=== PATIENT | male | born 1950 | race Caucasian/White ===

== ENCOUNTER 2019-05-15 19:10 | Inpatient (IN) ==
[2019-05-15] MEDS ORDERED: NS 1,000 ML IV ONE ×2 (19:26→23:10)
[2019-05-15] MEDS ORDERED: ZOFRAN IV ONE ×2 (19:29→22:24)
[2019-05-15] MEDS ORDERED: DILAUDID IV ONE (19:29)
[2019-05-15 19:52] LABS: BASO# 0.02 X1000 (0.0-0.2); BASO% 0.2 % (0.0-0.8); EOS# 0.67 X1000 (0.0-0.7); EOS% 5.8 % (0.0-10.0); HEMATOCRIT 42.7 % (42.0-52.0); HEMOGLOBIN 13.8 g/dL (14.0-18.0); IMM GRAN# 0.05 X1000 (0.0-0.04); IMM GRAN% 0.4 % (0.0-0.5); LYMPH# 2.36 X1000 (1.2-3.4); LYMPH% 20.3 % (20.5-51.1); MCH 25.8 PG (27-31); MCHC 32.3 g/dL (33-37); MONO% 7.8 % (1.7-9.3); NEUT% 65.5 % (42.2-75.2); PLT 173 X1000 (130-400); RBC 5.34 XMIL (4.7-6.1); RDW 13.9 % (11.5-14.5)
[2019-05-15 20:07] LABS: BILIRUBIN URINE NEGATIVE (NEGATIVE); BLOOD URINE NEGATIVE (NEGATIVE); CLARITY CLEAR (CLEAR); COLOR YELLOW; GLUCOSE URINE NEGATIVE (NEGATIVE); KETONE URINE NEGATIVE (NEGATIVE); LEUKOCYTES URINE NEGATIVE (NEGATIVE); NITRITE URINE NEGATIVE (NEGATIVE); PH URINE 6.5; PROTEIN URINE NEGATIVE (NEGATIVE); SP GRAVITY URINE 1.005; UROBILINOGEN URINE NORMAL
[2019-05-15 20:09] LABS: AGAP 9; ALBUMIN 4.2 g/dL (3.5-5.0); ALKALINE PHOSPHATASE 69 U/L (32-122); AMYLASE 55 U/L (20-200); BUN 17 mg/dL (8-22); CHLORIDE 99 mmol/L (98-107); COSMO 279; CREATININE 1.1 mg/dL (0.7-1.2); ESTIMATED GFR > 60; GLUCOSE 135 mg/dL (70-104); GOT 21 U/L (10-34); GPT 16 U/L (10-44); LIPASE 25 U/L (13-60); POTASSIUM 4.1 mmol/L (3.5-5.1); SODIUM 138 mmol/L (136-145); TCO2 30 mmol/L (25-35); TOTAL PROTEIN 7.5 g/dL (6.3-8.3)
[2019-05-15 20:27] LABS: URINE SOURCE CLEAN CATCH
[2019-05-15 20:28] LABS: URINE BACTERIA NEGATIVE /HFP; URINE CAST NONE SEEN /LPF; URINE CRYSTAL NONE SEEN /HPF; URINE EPITHELIAL CELLS <10 /HPF (<10); URINE RBC <10 /HPF (<10); URINE WBC <10 /HPF (<10); URINE YEAST NONE SEEN /HPF
--- NOTE | 2019-05-15 20:33 | Diag Imaging Result Doc PS360 ---
EXAM: CT ABDOMEN/PELVIS W/O CONTRAST 05/15/2019 HISTORY: abd pain TECHNIQUE: This exam was performed using automated exposure control, adjustment of mA or kV according to patient size, and/or use of iterative reconstruction technique. COMMENT: The current study is compared with the previous examination of 05/01/2011. There is some pleural thickening in the posterior costophrenic sulcus of the left lower lobe which is slightly worse than on the previous study. Otherwise there is no evidence of acute disease in the visualized portion of the chest. There is no evidence of nephrolithiasis or hydronephrosis. There is diverticulosis of the colon. There is no evidence of acute diverticulitis. There is no evidence of free fluid. There is a fair amount of stool in the cecum which is somewhat mobile. There is no evidence of appendicitis. The small bowel is not distended. There are atherosclerotic calcifications in the aorta. The aorta is not distended. There is no evidence of cholelithiasis. There is a fat-containing inguinal hernia on the right. The entire small bowel is somewhat more distended and contains more fluid than on the previous examination, and the possibility of mild enteritis cannot be excluded.. IMPRESSION: Questionable enterocolitis. Mild constipation and diverticulosis coli. Electronically signed by Gaurav Kruse 05/15/2019 8:30 PM
[2019-05-15] MEDS ORDERED: CIPRO 400 MG/D5W 400 MG/200 ML IVPB IV ONE (21:02)
[2019-05-15] MEDS ORDERED: FLAGYL 500 MG/NS 500 MG/100 ML IVPB IV ONE (21:02)
[2019-05-15] MEDS ORDERED: TYLENOL PO ONE (22:24)
--- NOTE | 2019-05-15 22:49 | PROVIDER DOCUMENTATION ---
This chart was entered by Brandi Arias Scribe, acting as scribe for Cammy Amaya MD. HPI-Abdominal Pain/GI Problem - General Chief Complaint: Abdominal Pain Stated Complaint: ABD PAIN Time Seen by Provider: 05/15/19 19:20 Source: patient Allergies/Adverse Reactions: Patient Allergies Allergy/AdvReac Type Severity Reaction Status Date / Time codeine AdvReac Intermediate VOMITING Verified 08/02/13 03:07 Home Medications: Home Medication List Medication Instructions Recorded Confirmed Last Taken Type Cinnamon Bark/Chromium Picolin 1 each PO QAM 08/02/13 05/16/19 08/01/13 09:00 History [Cinnamon Plus Chromium Capsule] Gluc/Ramon-MSM#1/C/Rios/Nico/Bor 1 each PO QAM 08/02/13 05/15/19 08/01/13 09:00 History [Osteo Bi-Flex Caplet] Levothyroxine [Synthroid] 150 microgm PO QAM 08/02/13 05/16/19 05/14/19 07:00 History Metoprolol Succinate E.r. [Toprol 50 mg PO DAILY 08/02/13 05/16/19 05/14/19 21:00 History Xl] Montelukast [Singulair] 10 mg PO QPM PRN 08/02/13 05/16/19 05/14/19 21:00 History Multivitamin [Multivitamins] 1 each PO QAM 08/02/13 05/15/19 08/01/13 09:00 History Oxymetazoline HCl [Visine Long 15 ml OP PRN PRN 08/02/13 05/15/19 08/01/13 09:00 History Lasting] Tamsulosin [Flomax] 0.4 mg PO DAILY 08/02/13 05/16/19 05/14/19 09:00 History Testosterone [Testopel] 75 mg [place] DIRECTED 08/02/13 05/16/19 Unknown History Valacyclovir HCl [Valtrex] 1,000 mg PO PRN PRN 08/02/13 05/15/19 Unknown History Celecoxib 200 mg PO DAILY 05/15/19 05/16/19 05/15/19 09:00 History Cyclosporine [Restasis] 0.4 ml .SEE ORDER BID 05/15/19 05/16/19 Unknown History Glimepiride 2 mg PO BID 05/15/19 05/16/19 05/14/19 13:00 History Hydrochlorothiazide 1 tab PO DAILY 05/15/19 05/16/19 05/14/19 09:00 History Loratadine [Claritin] 10 mg PO PRN PRN 05/15/19 05/16/19 Unknown History Sitagliptin [Januvia] 50 mg PO DAILY 05/15/19 05/16/19 05/14/19 09:00 History Metformin HCl 1 cap PO BID 05/16/19 05/16/19 05/15/19 08:00 History Pantoprazole [Protonix] 40 mg PO HS 05/16/19 05/16/19 05/15/19 21:00 History Levofloxacin [Levaquin] 500 mg PO DAILY #7 tab 05/17/19 Unknown Rx Metronidazole [Flagyl] 500 mg PO TID #21 tab 05/17/19 Unknown Rx - History of Present Illness-ABD Nature of Presenting Problems: Pt si 69/M presenting to ED w/ generalized ABD pain that started around 2pm today, worsening after eating lunch at 2:30, sts having mild nausea, but denies vomiting. Pt sts that he had 2 normal BM this morning, but cannot go again now and is having trouble passing gas as well. pt has hx of colon resection, hernia repair and diverticulitis. Pt sts that he has no hx of bowel obstruction. Pt denies cardiac hx, but sts that he has been feeling a recurrent "squeezing and then a pop" in is chest lately that has become more frequent. Abdominal Pain Onset Location: reports: generalized abdomen Pain Radiation: reports: no radiation Quality of Pain: reports: aching Severity in ED: reports: moderate Onset/Duration: reports: 4-6 hours ago Timing: reports: still present, getting worse Activities at Onset: reports: none Modifying Factors: improves with: nothing Associated Symptoms: reports: nausea. denies: arm pain, chest pain, fever/chills, shortness of breath, vomiting Last BM: this morning (x2) Dark Stools Present?: reports: none noticed Rectal Bleeding: reports: none Rectal Pain: reports: none Emesis Description: reports: none Bruising or Bleeding Gums?: No Similar Symptoms Previously?: No Recently seen or treated by another doctor?: No Review of Systems - Adult - REVIEW OF SYSTEMS - ADULT Constitutional: reports: no symptoms reported. denies: chills, fever Eyes: reports: no symptoms reported Ears, Nose, Mouth & Throat: reports: no symptoms reported Cardiovascular: reports: no symptoms reported. denies: chest pain Respiratory: reports: no symptoms reported Gastrointestinal: reports: abdominal pain, nausea. denies: constipation, diarrhea, rectal bleeding, vomiting Genitourinary: reports: no symptoms reported Musculoskeletal: reports: no symptoms reported. denies: back pain Integumentary: reports: no symptoms reported Neurological: reports: no symptoms reported. denies: dizziness/vertigo, headache/migraines Psychiatric: reports: no symptoms reported Endocrine: reports: no symptoms reported Hematologic/Lymphatic: reports: no symptoms reported Allergic/Immunologic: reports: no symptoms reported All Other Systems: Reviewed and Negative Past History - Adult - PAST MEDICAL HISTORY-ADULT Review of Records: reports: Old Records Reviewed, Nursing Assessment Review, Medications Reviewed, Social history reviewed & non-contributory. - SOCIAL HISTORY Smoking: denies, non-smoker Substance Use: none/never Alcohol Use Frequency: rarely Living Situation: family Physical Exam-General - PHYSICAL EXAM-ADULT Initial Vital Signs Reviewed: Yes - CONSTITUTIONAL General Appearance: appears well, alert, mild distress - EYES Eyes: PERRL/EOMI, pink conjunctivae - HEAD, EARS, NOSE, MOUTH & THROAT HENMT: normocephalic/atraumatic, moist mucous membranes, TMs normal. negative: normal ENT inspection (mildly dry) - NECK Neck: non-tender, full range of motion, supple - RESPIRATORY Respiratory: lungs clear - CARDIOVASCULAR Cardiovascular: regular rate, rhythm - GASTROINTESTINAL (ABDOMEN) Abdominal Exam: normal bowel sounds, non tender, soft - LYMPHATIC Lymphatic: no adenopathy - MUSCULOSKELETAL Back Exam: normal inspection Extremity: normal range of motion, non-tender, normal gait, normal inspection - SKIN Integumentary: normal color, warm/dry - NEUROLOGIC Neurologic: grossly normal - PSYCHIATRIC Psych/Mental Status: normal mood/affect, normal thought content, normal thought process, oriented x 3 Progress - PLAN OF CARE/RESULTS Progress/Plan/Lab Results: Vital Signs - 8 hr 05/15/19 19:15 Temperature 98.1 F Pulse Rate 68 Respiratory Rate 20 Blood Pressure 132/73 O2 Sat by Pulse Oximetry 99 Orders Category Date Time Status CT ABD/PELVIS W/IV CONT ONLY [CT] Stat Exams 05/15/19 19:26 Ordered AMYLASE [CHEM] Stat Lab 05/15/19 19:26 Uncollected CBC WITH ELECTRONIC DIFF [HEME] Stat Lab 05/15/19 19:26 Uncollected COMPREHENSIVE METABOLIC PANEL [CHEM] Stat Lab 05/15/19 19:26 Uncollected LACTATE, PLASMA [CHEM] Stat Lab 05/15/19 19:26 Uncollected LIPASE [CHEM] Stat Lab 05/15/19 19:26 Uncollected UA NIMS W/REFLEX CULT PL [URINALYSIS] Stat Lab 05/15/19 19:26 Uncollected 0.9% Sodium Chloride Inj [Ns] 1,000 ml Med 05/15/19 19:26 Active IV 999 mls/hr Result Diagrams: 05/17/19 05:15 05/17/19 05:15 - CT/MRI 1 CT Study: Abdomen Impression: Abnormal (EXAM: CT ABDOMEN/PELVIS W/O CONTRAST 05/15/2019 HISTORY: abd pain TECHNIQUE: This exam was performed using automated exposure control, adjustment of mA or kV according to patient size, and/or use of iterative reconstruction technique. COMMENT: The current study is compared with the previous examination of 05/01/2011. There is some pleural thickening in the posterior costophrenic sulcus of the left lower lobe which is slightly worse than on the previous study. Otherwise there is no evidence of acute disease in the visualized portion of the chest. There is no evidence of nephrolithiasis or hydronephrosis. There is diverticulosis of the colon. There is no evidence of acute diverticulitis. There is no evidence of free fluid. There is a fair amount of stool in the cecum which is somewhat mobile. There is no evidence of appendicitis. The small bowel is not distended. There are atherosclerotic calcifications in the aorta. The aorta is not distended. There is no evidence of cholelithiasis. There is a fat-containing inguinal hernia on the right. The entire small bowel is somewhat more distended and contains more fluid than on the previous examination, and the possibility of mild enteritis cannot be excluded.. IMPRESSION: Questionable enterocolitis. Mild constipation and diverticulosis coli. Electronically signed by Gaurav Kruse 05/15/2019 8:30 PM 05/15/192029 Interpreting Physician: Gaurav Kruse MD Dictated Da te/Time: 05/15/192023 cc: Cammy Amaya MD; Alonso Blount MD) - CONSULTS/PCP/HOSPITALIST Notification #1 *Consult/PCP/Hospitalist*: d/w Dr. Teran Time Discussed: 22:49 Consult Disposition: Admit Departure - Departure Date of Disposition Decision: 05/16/19 Time of Disposition Decision: 00:10 DIAGNOSIS: Enterocolitis Disposition: ADMITTED INPATIENT 09 Certified Medical Emergency: Emergent Condition: Stable - Critical Care Note This patient required my direct & personal management of CC.: No Attestation - Physician/ DIANE Attestation Patient care was provided by Advanced Practice Provider:: No The physician spent face to face time with patient:: Yes Advanced Practice Provider documentation review:: Supervising physician onsite and consulted in the evaluation and care of this patient. The physician did have a face to face encounter with the patient. This chart was documented by the indicated scribe, (Brandi Arias, Christopheribe) and accurately reflects the services I performed and decisions made by me, Cammy Brown MD, as attested by the provider's signature.
[2019-05-15] MEDS ORDERED: ZOFRAN IV PRN (23:10)
[2019-05-15] MEDS ORDERED: DILAUDID IV PRN (23:10)
[2019-05-16] MEDS ORDERED: ZOFRAN IV PRN (00:17)
[2019-05-16] MEDS ORDERED: DILAUDID IV PRN (00:17)
[2019-05-16] MEDS ORDERED: NS 1,000 ML IV SCH (00:30)
[2019-05-16] MEDS ORDERED: TYLENOL PO PRN (07:08)
[2019-05-16] MEDS ORDERED: CLARITIN PO PRN (07:10)
[2019-05-16] MEDS ORDERED: VISINE OPH DROPS OPH PRN (07:10)
[2019-05-16] MEDS ORDERED: SINGULAIR PO PRN (07:10)
[2019-05-16] MEDS ORDERED: VALTREX PO PRN (07:10)
[2019-05-16] MEDS ORDERED: SYNTHROID PO SCH ×2 (08:00)
[2019-05-16] MEDS ORDERED: RESTASIS 0.05% OPH DROPS SCH (09:00)
[2019-05-16] MEDS ORDERED: CIPRO 400 MG/D5W 400 MG/200 ML IVPB IV SCH (10:00)
[2019-05-16] MEDS: FLAGYL 500 MG/NS 500 MG/100 ML IVPB IV SCH ×3 (10:09→21:40)
[2019-05-16] MEDS: RESTASIS 0.05% OPH DROPS OPH SCH ×2 (10:14→21:28)
[2019-05-16] MEDS: GLUCOSAMINE 500 MG/CHONDROITIN 400 MG PO SCH (10:15)
[2019-05-16] MEDS: AMARYL PO SCH ×3 (10:16→21:28)
[2019-05-16] MEDS: TOPROL XL PO SCH (10:17)
[2019-05-16] MEDS: FLOMAX PO SCH (10:17)
[2019-05-16] MEDS: JANUVIA PO SCH ×2 (10:18→12:19)
[2019-05-16] MEDS: CELEBREX PO SCH ×2 (10:18→10:19)
[2019-05-16] MEDS: THERA M PLUS PO SCH (10:19)
[2019-05-16] MEDS: MIRALAX PO SCH ×2 (10:20→21:28)
[2019-05-16] MEDS: HYDROCHLOROTHIAZIDE PO SCH ×2 (10:20→10:22)
--- NOTE | 2019-05-16 10:39 | HISTORY AND PHYSICAL ---
PRIMARY CARE PHYSICIAN: Alonso Blount MD. CHIEF COMPLAINT: Abdominal pain and distention. HISTORY OF PRESENT ILLNESS: Mr. Martínez is a 69-year-old, male. He complains of his stomach beginning to swell yesterday afternoon. He stated he started having abdominal pain. He states it steadily got worse throughout the day. He tried to take some Gas-X to resolve the pain and this did not help. He was unable to have a bowel movement. He stated there was some nausea but no vomiting. The patient states he has a history of diverticulitis in the 1970s and this was kind of like the pain he felt back then. The patient presented to the ER. White blood cell count showed 11.60. Amylase and lipase were normal at [address] scan showed questionable enterocolitis and mild constipation, and diverticulosis. The patient was given Flagyl and Cipro in the ER. The patient states that, however, after the Cipro was given, he became very nauseated. The patient was then given IV Zofran at that time. The patient denies any headaches or fevers. He denies any chest pain. Abdomen is tender to palpation. He is denying any abdominal pain at this time. States his pain is a lot more improved since he received some pain medicine in the ER. Abdomen is not distended. It is soft and bowel sounds are present. The patient denies any difficulty urinating. States that he has not been able to use the bathroom since the day before yesterday. The patient denies any blood in his stool or blood in his urine. PAST MEDICAL HISTORY: Diverticulitis in the 70s, hyperlipidemia, Kwadwo's thyroiditis, MGUS syndrome, irregular heart rhythm, diabetes, neuropathy, restless legs syndrome, GERD, blepharitis, osteoarthritis. PAST SURGICAL HISTORY: Colon resection in 2001, a tumor removal to the right breast as a teenager, tonsillectomy, and varicocelectomy. FAMILY HISTORY: Mother is and she from diabetes. Father is still living. He has had an PA and a CABG. SOCIAL HISTORY: The patient is . He lives in [place] He still works as a private pilot. He denies any smoking or illicit drug use. He states that he occasionally drinks alcohol in a social setting. ALLERGIES: Codeine. MEDICATIONS: 1. Celecoxib 200 mg p.o. daily. 2. Cinnamon bark, cinnamon plus chromium capsule, 1 tablet p.o. every morning. 3. Restasis 0.4 mL b.i.d. 4. Glimepiride 2 mg p.o. b.i.d. 5. Osteo Bi-Flex capsules 1 tablet p.o. every morning. 6. Hydrochlorothiazide 1 tablet p.o. daily. 7. Synthroid 150 mcg p.o. daily. 8. Claritin 10 mg p.o. p.r.n. 9. Toprol-XL 50 mg p.o. daily. 10. Singulair 10 mg p.o. q.p.m. 11. Multivitamin 1 tablet p.o. every morning. 12. Visine long-lasting 50 mL to the eyes p.r.n. 13. Protonix 40 mg p.o. at bedtime. 14. Januvia 50 mg p.o. daily. 15. Flomax 0.4 mg p.o. daily. 16. Testopel 75 mg as directed. 17. Valtrex 1000 mg p.o. p.r.n. LABS AND DIAGNOSTICS: White blood cell count 11.60, red blood cell count 5.34, hemoglobin is 13.8, hematocrit is 42.7, platelet count is 173,000. Sodium is 138, potassium is 4.1, chloride is 99, carbon dioxide 30, anion gap is 9, BUN 17, creatinine 1.1, estimated GFR is greater than 60, glucose is 135, calcium is 9. Bilirubin is 0.5, AST is 21, ALT is 16, alkaline phosphatase is 69, amylase is 55, lipase is 25. Plasma lactate is 1. Urinalysis is negative. CT of the abdomen and pelvis shows questionable enterocolitis, mild constipation, and diverticulosis coli. REVIEW OF SYSTEMS: A 10 point review of systems has been obtained and all are negative except what is stated above in the HPI. PHYSICAL EXAMINATION: VITAL SIGNS: Temperature 97.6 degrees, heart rate 58, respiratory rate 18, blood pressure is 118/64, O2 saturation is 100% on room air. Weight is 227 pounds. Height is 6 feet 2 inches. GENERAL: This is a 69-year-old, male. He is lying in the bed. He is in no acute distress. He is well nourished and well developed. HEENT: Atraumatic, normocephalic. Pupils equal, round, reactive to light. Extraocular movements intact. Sclerae are icteric. Mucous membranes are moist. NECK: Supple. No lymphadenopathy. Trachea is midline. No JVD. No thyromegaly. No bruits. CARDIOVASCULAR: Regular rate and rhythm. No gallops or rubs appreciated. No murmurs. RESPIRATORY: Lung sounds are clear with equal chest excursion. Respirations are nonlabored with no accessory muscle usage. GI: Abdomen is tender, soft, and nondistended. Bowel sounds are present x4. NEUROLOGIC: Cranial nerves 2-12 are intact. The patient is awake, alert, oriented, and able to follow all commands. MUSCULOSKELETAL: Full distal strength noted. No abnormalities of gait. No deformities. EXTREMITIES: No clubbing, no cyanosis, no edema. DP and PT pulses are present and palpable. SKIN: Warm, dry, intact. No rashes. No bruises. No diaphoresis. ASSESSMENT AND PLAN: 1. Enterocolitis. We admitted this patient to the medical floor. We have started him on intravenous antibiotics of Flagyl and Levaquin. We are going to give him Zofran as needed for his nausea. We started him on a gastrointestinal soft diet. He has been able to hold down liquids all night. We are going to give him Tylenol for fever as needed. We have restarted all of his home medications. We are going to repeat labs in the morning. 2. Constipation. I am going to give him some MiraLAX daily. 3. Diabetes. I have restarted his home diabetic medications. We are also going to be checking his fingerstick before meals and at bedtime. We can give him subcutaneous insulin per sliding scale. 4. Gastroesophageal reflux disease. The patient takes Protonix at home. I have restarted his home medication. 5. Osteoarthritis. I have started all of his home medications for his arthritis. 6. Gastrointestinal prophylaxis. He is on home Protonix. I have restarted this. 7. Deep venous thrombosis prophylaxis. I have placed him on sequential compression devices. We have admitted this patient to the medical floor. We are going to give him intravenous antibiotics of Levaquin and Flagyl. We have advanced his diet to a gastrointestinal soft diet. We will see how he tolerates this. I have also given him some MiraLAX for his constipation. We have restarted all of his home medications. The patient's abdominal pain seems to have subsided since admission. We are going to follow this patient closely and all further recommendations are pending hospital course and lab data. Dictated by DWAYNE Abreu for Terrence Teran MD cc: MD Alonso Manjarrez MD MTDD
[2019-05-16] MEDS: HUMULIN R (PARKWAY) SUBQ SCH ×3 (11:11→21:29)
[2019-05-16] MEDS: LEVAQUIN 750 MG in NS 150 ML IV SCH (11:13)
--- NOTE | 2019-05-16 13:42 | HISTORY AND PHYSICAL ---
ADDENDUM: Patient was seen and examined by myself. Full note dictated and discussed with nurse practitioner. Patient notes that overall he is feeling better. States his nausea has improved. His abdominal pain has improved. PLAN: I will plan to admit the patient to the hospital. As his symptoms have improved some overnight, we are going to advance his diet. If he tolerates this, hopefully he can discharge home later. cc: Terrence Teran MD
[2019-05-16] MEDS: NS 1,000 ML IV SCH (17:19)
[2019-05-16] MEDS ORDERED: PROTONIX PO SCH (21:00)
[2019-05-17] MEDS: FLAGYL 500 MG/NS 500 MG/100 ML IVPB IV SCH ×2 (04:35→09:57)
[2019-05-17] MEDS: NS 1,000 ML IV SCH ×2 (05:00→10:00)
[2019-05-17 05:52] LABS: BASO# 0.03 X1000 (0.0-0.2); BASO% 0.5 % (0.0-0.8); EOS# 0.62 X1000 (0.0-0.7); EOS% 10.4 % (0.0-10.0); HEMATOCRIT 39.7 % (42.0-52.0); HEMOGLOBIN 12.5 g/dL (14.0-18.0); IMM GRAN# 0.02 X1000 (0.0-0.04); IMM GRAN% 0.3 % (0.0-0.5); LYMPH# 1.45 X1000 (1.2-3.4); LYMPH% 24.3 % (20.5-51.1); MCH 25.5 PG (27-31); MCHC 31.5 g/dL (33-37); MONO# 0.71 X1000 (0.11-0.59); MONO% 11.9 % (1.7-9.3); NEUT# 3.13 X1000 (1.4-6.5); NEUT% 52.6 % (42.2-75.2); PLT 151 X1000 (130-400); WBC 5.96 X1000 (4.8-10.8)
[2019-05-17 06:06] LABS: AGAP 9; BUN 16 mg/dL (8-22); CHLORIDE 103 mmol/L (98-107); COSMO 280; CREATININE 1.1 mg/dL (0.7-1.2); ESTIMATED GFR > 60; GLUCOSE 124 mg/dL (70-104); MAGNESIUM 1.6 mg/dL (1.5-2.7); SODIUM 139 mmol/L (136-145); TCO2 27 mmol/L (25-35)
[2019-05-17 06:16] LABS: HEMOGLOBIN A1C 7.3 % (4.8-6.0)
[2019-05-17] MEDS ORDERED: CLARITIN PO PRN (07:00)
[2019-05-17] MEDS ORDERED: SYNTHROID PO SCH (07:00)
[2019-05-17] MEDS: HUMULIN R (PARKWAY) SUBQ SCH ×2 (07:34→12:18)
[2019-05-17] MEDS: SYNTHROID PO SCH ×2 (07:36→10:02)
[2019-05-17] MEDS: LEVAQUIN 750 MG in NS 150 ML IV SCH (09:51)
[2019-05-17] MEDS: RESTASIS 0.05% OPH DROPS OPH SCH (09:53)
[2019-05-17] MEDS: GLUCOSAMINE 500 MG/CHONDROITIN 400 MG PO SCH (09:54)
[2019-05-17] MEDS: AMARYL PO SCH (09:54)
[2019-05-17] MEDS: TOPROL XL PO SCH (09:54)
[2019-05-17] MEDS: CELEBREX PO SCH (09:54)
[2019-05-17] MEDS: JANUVIA PO SCH (09:54)
[2019-05-17] MEDS: THERA M PLUS PO SCH (09:54)
[2019-05-17] MEDS: HYDROCHLOROTHIAZIDE PO SCH (09:55)
[2019-05-17] MEDS: FLOMAX PO SCH (09:55)
[2019-05-17] MEDS: MIRALAX PO SCH (09:55)
[2019-05-17] MEDS ORDERED: SENOKOT PO ONE (12:06)
[2019-05-17 14:19] VITALS: BP 110/52
--- NOTE | 2019-05-17 17:19 | DISCHARGE SUMMARY ---
ADMISSION DATE: 05/15/2019 DISCHARGE DATE: 05/17/2019 PRIMARY CARE PHYSICIAN: Dr. Alonso Blount. ADMISSION DIAGNOSES: 1. Enterocolitis. 2. Constipation. 3. Diabetes. 4. Gastroesophageal reflux disease. 5. Osteoarthritis. DISCHARGE DIAGNOSIS: 1. Enterocolitis. 2. Constipation. 3. Diabetes. 4. Gastroesophageal reflux disease. 5. Osteoarthritis. SUMMARY OF FINDINGS: This is a 69-year-old male who presented to the ER with complaints of his stomach beginning to swell on the day prior what began having abdominal pain and progressively worsened throughout the day, tried to take some Gas-X to resolve the pain and it did not help. Was unable to have a bowel movement, had nausea but no vomiting. A CT scan showed a questionable enterocolitis and mild constipation and diverticulosis. He was admitted, placed on IV Flagyl and Levaquin, given Zofran p.r.n. for nausea, started him on a GI soft diet. He tolerated this well. His white blood cell count returned to normal this morning to 5.96. States his abdominal pain was much improved and so it was felt that he could safely be discharged home. DISCHARGE MEDICATIONS: Celebrex 200 mg p.o. daily, cinnamon bark plus chromium capsule 1 p.o. q.a.m., Restasis 1 drop to each eye b.i.d., glimepiride 2 mg p.o. b.i.d., Osteo Bi-Flex 1 tablet q.a.m., hydrochlorothiazide 25 mg p.o. daily, Levaquin 500 mg p.o. daily #7 with no refills, Synthroid 150 mcg p.o. q.a.m., Claritin 10 mg p.o. p.r.n., metformin 500 mg p.o. b.i.d., metoprolol 50 mg p.o. daily, Flagyl 500 mg p.o. t.i.d. #21 with no refills, Singulair 10 mg p.o. nightly p.r.n., multivitamin p.o. q.a.m., Visine drop p.r.n., Protonix 40 mg p.o. at bedtime, Januvia 50 mg p.o. daily, Flomax 0.4 mg p.o. daily, Testopel 75 mg as directed, Valtrex 1000 mg p.o. p.r.n. FOLLOWUP: He will need to follow up with his primary care physician on 05/24/2019 at 1:30 p.m. All discharge instructions have been reviewed with the patient and he verbalized understanding. TIME SPENT: 35 minutes. Dictated by DWAYNE Hall for Terrence Teran MD cc: MD Terrence Epps MD
--- NOTE | 2019-05-17 19:14 | DISCHARGE SUMMARY ---
ADMISSION DATE: 05/15/2019 DISCHARGE DATE: 05/17/2019 Patient seen and examined by myself. Full note dictated and discussed with nurse practitioner. Patient had some abdominal pain that has resolved. He has tolerated a full diet. Therefore, he will be discharged home. I expect this was a viral gastroenteritis. cc: Terrence Teran MD
== END 2019-05-17 15:17 | disposition home or self-care (01) | DRG 392 ==
LOC: P.MEDSURG 19:10 → P.ED 19:10 → OBSVTOIN 23:53
PROVIDERS: ATTEND Family Medicine